=== PATIENT | female | born 2005 | race Caucasian/White ===

== ENCOUNTER 2024-03-06 20:45 | Emergency (ER) | payer MEDICAID ==
[~2024-03-06] VITALS: Ht 157.5 cm; Wt 54.0 kg
[2024-03-06 20:48] VITALS: TEMP 98.1; O2SAT 100
[2024-03-06] MEDS: KETOROLAC 15MG/ML VIAL IM ONE (21:37)
[2024-03-06 22:12] VITALS: BP 124/68; PULSE 88; RESP 20
== END 2024-03-06 22:14 | disposition home or self-care (01) ==
LOC: ER 20:45
DX: M94.0 Chondrocostal junction syndrome [Tietze] (principal); R07.81 Pleurodynia; F41.9 Anxiety disorder, unspecified
CPT/HCPCS: 99283; 81025; 71101; 96372; J1885